=== PATIENT | male | born 1965 | race Two or more races ===

== ENCOUNTER 2022-09-20 21:31 | Emergency (ER) | payer OTHER ==
[~2022-09-20] VITALS: Ht 188 cm; Wt 117.9 kg
[2022-09-20] MEDS ORDERED: GRALISE600 MG (21:41)
[2022-09-20] MEDS ORDERED: NEURONTIN300 MG PO (21:41)
== END 2022-09-21 05:03 | disposition home or self-care (01) ==
LOC: ER 21:31
DX: I10 Essential (primary) hypertension (principal); E11.65 Type 2 diabetes mellitus with hyperglycemia